=== PATIENT | female | born 1980 | race Caucasian/White ===

== ENCOUNTER 2021-07-06 09:52 | Emergency (ER) | payer OTHER ==
[2021-07-06 10:05] VITALS: BP 131/86; PULSE 68; TEMP 97.9; BMI 26.7
[2021-07-06 10:56] LABS: BASO % 0.7 % (0-2.0); HCG,QUALITATIVE URINE Positive; HEMATOCRIT 41.6 % (32.4-45.2); LYMPH % 12.8 % (8-40); MCH 30.4 pg (25.7-33.7); MCHC 33.5 g/dl (32.0-36.0); MEAN CELL VOLUME 90.6 fl (80-96); MONO % 5.6 % (3.8-10.2); NEUT % 78.9 % (42.8-82.8); PLATELET COUNT 251 10^3/uL (134-434); RBC 4.59 M/mm3 (3.60-5.2); WHITE BLOOD COUNT 9.4 K/mm3 (4.0-10.0)
[2021-07-06 11:00] LABS: EPI CELLS 30 /uL (0-25.1); HYALINE CASTS 8 /uL (0-3.1); PH,URINE 6.5 (5.0-8.0); URINE APPEARANCE CLOUDY; URINE BACTERIA 37 /uL (0-1359); URINE BILIRUBIN NEGATIVE (NEGATIVE); URINE COLOR RED; URINE GLUCOSE (UA) NEGATIVE (NEGATIVE); URINE KETONE NEGATIVE (NEGATIVE); URINE LEUK ESTERASE TRACE (NEGATIVE); URINE NITRITE NEGATIVE (NEGATIVE); URINE PROTEIN 2+ (NEGATIVE); URINE UROBILINOGEN 0.2 mg/dL (0.2-1.0); URINE WBC 21 /uL (0-25.8)
[2021-07-06 11:22] LABS: URINE RBC 9395.4 /uL (0-23.9)
[2021-07-06 11:23] LABS: YEAST NEGATIVE (NEGATIVE)
[2021-07-06 11:25] LABS: ALBUMIN 3.8 g/dl (3.4-5.0); BLOOD UREA NITROGEN 10.7 mg/dL (7-18); CALCIUM 8.6 mg/dL (8.5-10.1)
[2021-07-06 11:28] LABS: CREATININE 0.6 mg/dL (0.55-1.3)
[2021-07-06 11:30] LABS: BILIRUBIN,TOTAL 0.3 mg/dL (0.2-1)
== END 2021-07-06 12:49 | disposition home or self-care (01) ==
LOC: JERFT 09:52 → JER 09:52 → JERFT 12:49
DX: O20.9 Hemorrhage in early pregnancy, unspecified (principal); Z3A.01 Less than 8 weeks gestation of pregnancy
CPT/HCPCS: 36415; 76817-TC; 80053; 81003; 84702; 84703; 85025; 86850; 86900; 86901; 87086; 99284-25

== ENCOUNTER 2021-07-08 12:37 | Emergency (ER) | payer OTHER ==
[2021-07-08 12:49] VITALS: BP 108/70; PULSE 58; TEMP 98.6; BMI 24.3
== END 2021-07-08 14:45 | disposition home or self-care (01) ==
LOC: JERFT 12:37
DX: O03.9 Complete or unspecified spontaneous abortion without complication (principal); Z3A.00 Weeks of gestation of pregnancy not specified
CPT/HCPCS: 36415; 84702; 99283-25

== ENCOUNTER 2021-12-03 10:37 | Emergency (ER) | payer OTHER ==
[2021-12-03 11:13] VITALS: BP 103/61; PULSE 69; RESP 18; TEMP 9.3; BMI 26.1
[2021-12-03 13:02] LABS: BASO % 0.9 % (0-2.0); EOS % 2.5 % (0-4.5); HEMATOCRIT 38.8 % (32.4-45.2); HEMOGLOBIN 13.3 GM/dL (10.7-15.3); LYMPH % 26.4 % (8-40); MCH 30.8 pg (25.7-33.7); MCHC 34.4 g/dl (32.0-36.0); MEAN CELL VOLUME 89.5 fl (80-96); MEAN PLT VOLUME 8.6 fl (7.5-11.1); MONO % 7.4 % (3.8-10.2); NEUT % 62.8 % (42.8-82.8); PLATELET COUNT 241 10^3/uL (134-434); RBC 4.34 M/mm3 (3.60-5.2); RDW 12.5 % (11.6-15.6); WHITE BLOOD COUNT 6.7 K/mm3 (4.0-10.0)
[2021-12-03 13:10] LABS: HCG,QUALITATIVE URINE Positive
[2021-12-03 13:14] LABS: EPI CELLS 31 /uL (0-25.1); HYALINE CASTS 0 /uL (0-3.1); PH,URINE 5.5 (5.0-8.0); URINE APPEARANCE CLEAR; URINE BACTERIA 2080 /uL (0-1359); URINE BILIRUBIN NEGATIVE (NEGATIVE); URINE COLOR YELLOW; URINE GLUCOSE (UA) NEGATIVE (NEGATIVE); URINE KETONE NEGATIVE (NEGATIVE); URINE LEUK ESTERASE 2+ (NEGATIVE); URINE NITRITE NEGATIVE (NEGATIVE); URINE PROTEIN NEGATIVE (NEGATIVE); URINE RBC 4 /uL (0-23.9); URINE UROBILINOGEN 0.2 mg/dL (0.2-1.0); URINE WBC 61 /uL (0-25.8)
[2021-12-03 13:23] LABS: ALBUMIN 3.6 g/dl (3.4-5.0); BLOOD UREA NITROGEN 15.1 mg/dL (7-18); CALCIUM 9.1 mg/dL (8.5-10.1)
[2021-12-03 13:27] LABS: CREATININE 0.5 mg/dL (0.55-1.3)
[2021-12-03 13:28] LABS: BILIRUBIN,TOTAL 0.3 mg/dL (0.2-1); TOT PROT 7.2 g/dl (6.4-8.2)
== END 2021-12-03 15:44 | disposition home or self-care (01) ==
LOC: JER 10:37 → JERFT 10:37
DX: O20.9 Hemorrhage in early pregnancy, unspecified (principal); Z3A.00 Weeks of gestation of pregnancy not specified
CPT/HCPCS: 36415; 76817-TC; 80053; 81003; 84702; 84703; 85025; 87086; 99284-25

== ENCOUNTER 2021-12-20 17:54 | Emergency (ER) | payer OTHER ==
[2021-12-20 18:12] VITALS: TEMP 97.8; BMI 26.3
[2021-12-20 19:22] LABS: EOS % 4.2 % (0-4.5); HEMATOCRIT 40.8 % (32.4-45.2); HEMOGLOBIN 13.3 GM/dL (10.7-15.3); LYMPH % 24.5 % (8-40); MCH 29.1 pg (25.7-33.7); MCHC 32.5 g/dl (32.0-36.0); MEAN CELL VOLUME 89.5 fl (80-96); MEAN PLT VOLUME 9.1 fl (7.5-11.1); MONO % 6.5 % (3.8-10.2); NEUT % 63.8 % (42.8-82.8); PLATELET COUNT 255 10^3/uL (134-434); RBC 4.56 M/mm3 (3.60-5.2); RDW 12.9 % (11.6-15.6); WHITE BLOOD COUNT 7.1 K/mm3 (4.0-10.0)
[2021-12-20 19:30] LABS: EPI CELLS >36 /uL (0-25.1); HYALINE CASTS 1 /uL (0-3.1); PH,URINE 6.5 (5.0-8.0); URINE APPEARANCE CLOUDY; URINE BACTERIA 2386 /uL (0-1359); URINE BILIRUBIN NEGATIVE (NEGATIVE); URINE COLOR YELLOW; URINE GLUCOSE (UA) NEGATIVE (NEGATIVE); URINE KETONE NEGATIVE (NEGATIVE); URINE LEUK ESTERASE 2+ (NEGATIVE); URINE NITRITE NEGATIVE (NEGATIVE); URINE PROTEIN NEGATIVE (NEGATIVE); URINE RBC 7 /uL (0-23.9); URINE UROBILINOGEN 0.2 mg/dL (0.2-1.0); URINE WBC 144 /uL (0-25.8)
[2021-12-20 20:31] LABS: BLOOD UREA NITROGEN 10.5 mg/dL (7-18); CALCIUM 8.7 mg/dL (8.5-10.1)
[2021-12-20 20:35] LABS: CREATININE 0.7 mg/dL (0.55-1.3)
[2021-12-21 01:11] VITALS: BP 119/77; PULSE 67; RESP 20
== END 2021-12-21 01:11 | disposition home or self-care (01) ==
LOC: JER 17:54
DX: O02.1 Missed abortion (principal)
CPT/HCPCS: 36415; 76817-TC; 80048; 81003; 84702; 85025; 86850; 86900; 86901; 87077; 87086; 99284-25

== ENCOUNTER 2022-11-26 09:43 | Emergency (ER) | payer BC, OTHER ==
[2022-11-26 09:48] VITALS: BP 110/73; PULSE 68; RESP 18; TEMP 98.7; BMI 26.7
[2022-11-26] MEDS ORDERED: IBUPROFEN 600 MG TABLET (FP) PO ONE ×2 (11:09→11:11)
[2022-11-26 12:24] LABS: THROAT:GRP A STREP NOT DETECTED (NOTDETECTED)
== END 2022-11-26 12:59 | disposition home or self-care (01) ==
LOC: JERFT 09:43
DX: J02.9 Acute pharyngitis, unspecified (principal); R09.81 Nasal congestion; R50.9 Fever, unspecified; R51.9 Headache, unspecified; R05.9 Cough, unspecified; J06.9 Acute upper respiratory infection, unspecified; J31.0 Chronic rhinitis; Z20.822 Contact with and (suspected) exposure to COVID-19
CPT/HCPCS: 0241U-QW; 87651; 99283-25

== ENCOUNTER 2023-01-01 21:40 | Emergency (ER) | payer BC, OTHER ==
[2023-01-01 21:54] VITALS: RESP 18; BMI 24.9
[2023-01-01 22:52] LABS: HCG,QUALITATIVE URINE Positive
[2023-01-01 22:55] LABS: EPI CELLS >36 /uL (0-25.1); HYALINE CASTS 0 /uL (0-3.1); URINE APPEARANCE CLEAR; URINE BACTERIA 1545 /uL (0-1359); URINE BILIRUBIN NEGATIVE (NEGATIVE); URINE COLOR YELLOW; URINE GLUCOSE (UA) NEGATIVE (NEGATIVE); URINE KETONE TRACE (NEGATIVE); URINE LEUK ESTERASE TRACE (NEGATIVE); URINE NITRITE NEGATIVE (NEGATIVE); URINE PROTEIN NEGATIVE (NEGATIVE); URINE RBC 8 /uL (0-23.9); URINE WBC 14 /uL (0-25.8)
[2023-01-02 00:22] LABS: BASO % 0.9 % (0-2.0); EOS % 3.3 % (0-4.5); HEMATOCRIT 39.5 % (32.4-45.2); HEMOGLOBIN 13.6 GM/dL (10.7-15.3); LYMPH % 26.2 % (8-40); MCHC 34.4 g/dl (32.0-36.0); MEAN CELL VOLUME 87.1 fl (80-96); MEAN PLT VOLUME 8.9 fl (7.5-11.1); NEUT % 62.6 % (42.8-82.8); PLATELET COUNT 230 10^3/uL (134-434); RBC 4.54 M/mm3 (3.60-5.2); RDW 13.3 % (11.6-15.6); WHITE BLOOD COUNT 7.4 K/mm3 (4.0-10.0)
[2023-01-02 00:41] LABS: POTASSIUM 3.8 mmol/L (3.5-5.1)
[2023-01-02 00:43] LABS: ALBUMIN 3.6 g/dl (3.4-5.0); BLOOD UREA NITROGEN 17.5 mg/dL (7-18); CALCIUM 8.6 mg/dL (8.5-10.1)
[2023-01-02 00:46] LABS: CREATININE 0.7 mg/dL (0.55-1.3)
[2023-01-02 00:48] LABS: BILIRUBIN,TOTAL 0.3 mg/dL (0.2-1); TOT PROT 7.1 g/dl (6.4-8.2)
[2023-01-02 01:05] VITALS: TEMP 98.2
[2023-01-02 05:28] VITALS: BP 103/71; PULSE 75
== END 2023-01-02 05:29 | disposition home or self-care (01) ==
LOC: JER 21:40
DX: O26.891 Other specified pregnancy related conditions, first trimester (principal); R10.30 Lower abdominal pain, unspecified; M54.50 Low back pain, unspecified; O23.91 Unspecified genitourinary tract infection in pregnancy, first trimester; R82.71 Bacteriuria; Z3A.01 Less than 8 weeks gestation of pregnancy
CPT/HCPCS: 36415; 76817-TC; 80053; 81003; 83690; 84484; 84702; 84703; 85025; 87081; 87086; 87491; 87591; 87661; 99284-25

== ENCOUNTER 2023-01-03 19:04 | Emergency (ER) | payer BC, OTHER ==
[2023-01-03 19:21] VITALS: BP 101/63; PULSE 61; RESP 18; TEMP 98.9; BMI 29.2
== END 2023-01-03 22:56 | disposition home or self-care (01) ==
LOC: JERFT 19:04
DX: O02.81 Inappropriate change in quantitative human chorionic gonadotropin (hCG) in early pregnancy (principal); Z3A.01 Less than 8 weeks gestation of pregnancy
CPT/HCPCS: 36415; 84702; 99283-25

== ENCOUNTER 2023-01-26 15:26 | Emergency (ER) | payer BC, OTHER ==
[2023-01-26 15:43] VITALS: BP 97/59; PULSE 74; RESP 20; TEMP 98; BMI 28.6
[2023-01-26 17:58] LABS: HCG,QUALITATIVE URINE Positive
[2023-01-26 18:02] LABS: EPI CELLS >36 /uL (0-25.1); HYALINE CASTS 0 /uL (0-3.1); URINE APPEARANCE CLEAR; URINE BACTERIA 2207 /uL (0-1359); URINE BILIRUBIN NEGATIVE (NEGATIVE); URINE COLOR YELLOW; URINE GLUCOSE (UA) NEGATIVE (NEGATIVE); URINE KETONE NEGATIVE (NEGATIVE); URINE LEUK ESTERASE 1+ (NEGATIVE); URINE NITRITE NEGATIVE (NEGATIVE); URINE PROTEIN NEGATIVE (NEGATIVE); URINE RBC 5 /uL (0-23.9); URINE WBC 42 /uL (0-25.8)
== END 2023-01-26 20:07 | disposition home or self-care (01) ==
LOC: JERFT 15:26
DX: O20.0 Threatened abortion (principal); O26.891 Other specified pregnancy related conditions, first trimester; R10.30 Lower abdominal pain, unspecified; Z3A.01 Less than 8 weeks gestation of pregnancy
CPT/HCPCS: 36415; 76801-TC; 81003; 84702; 84703; 87086; 99284-25

== ENCOUNTER 2023-01-29 19:22 | Emergency (ER) | payer BC, OTHER ==
[2023-01-29 19:27] VITALS: BP 129/78; PULSE 85; RESP 16; TEMP 98.1; BMI 28.8
== END 2023-01-30 01:30 | disposition home or self-care (01) ==
LOC: JERFT 19:22 → JER 19:22
DX: O20.0 Threatened abortion (principal); R10.9 Unspecified abdominal pain
CPT/HCPCS: 36415; 76801-TC; 84702; 99284-25

== ENCOUNTER 2024-03-13 13:26 | Inpatient (IN) | payer BC ==
[2024-03-13] MEDS: ELECTROLYTE-148 SOLN 1,000 ML IV SCH (15:00)
[2024-03-13 15:03] VITALS: BMI 30.7
[2024-03-13 15:13] LABS: BASO % 0.6 % (0-2.0); EOS % 2.2 % (0-4.5); HEMATOCRIT 36.5 % (32.4-45.2); HEMOGLOBIN 12.4 GM/dL (10.7-15.3); LYMPH % 15.1 % (8-40); MCH 29.8 pg (25.7-33.7); MCHC 33.8 g/dl (32.0-36.0); MEAN CELL VOLUME 88.1 fl (80-96); MEAN PLT VOLUME 8.5 fl (7.5-11.1); MONO % 6.6 % (3.8-10.2); NEUT % 75.5 % (42.8-82.8); PLATELET COUNT 212 10^3/uL (134-434); RBC 4.15 M/mm3 (3.60-5.2); RDW 13.9 % (11.6-15.6); WHITE BLOOD COUNT 6.3 K/mm3 (4.0-10.0)
[2024-03-13 15:19] LABS: INR 0.91 (0.83-1.09); PROTHROMBIN TIME (PATIENT) 10.5 SEC (9.7-13.0)
[2024-03-13 15:22] LABS: ACTIVATED PTT 29.4 SECONDS (25.2-36.5)
[2024-03-13 16:09] LABS: POTASSIUM 3.9 mmol/L (3.5-5.1)
[2024-03-13 16:11] LABS: BLOOD UREA NITROGEN 10.5 mg/dL (7-18); CALCIUM 8.7 mg/dL (8.5-10.1)
[2024-03-13 16:14] LABS: CREATININE 0.7 mg/dL (0.55-1.3)
[2024-03-13] MEDS: DINOPROSTONE 10 MG VAGINAL SUPPOSITORY VG ONE (18:48)
[2024-03-14] MEDS: OXYTOCIN 30 UNITS in 0.9% NS 30 UNIT/500 ML INFUS.BAG IVPB SCH (08:13)
[2024-03-14] MEDS ORDERED: FENTANYL/BUPIVACAINE/NS/PF - PCEA - 50 ML DISP.SYRIN EP ONE (12:07)
[2024-03-14] MEDS ORDERED: BUPIVACAINE HCL/PF 0.25% (2.5MG/ML) 10 ML VIAL ONE (12:08)
[2024-03-14] MEDS ORDERED: FENTANYL CITRATE/PF 50 MCG/ML VIAL ONE (12:08)
[2024-03-14] MEDS: FENTANYL/BUPIVACAINE/NS/PF - PCEA - 50 ML DISP.SYRIN EP SCH (12:30)
[2024-03-14] MEDS ORDERED: NALOXONE HCL 0.4 MG/ML VIAL IVPUSH PRN (12:53)
[2024-03-14] MEDS ORDERED: OXYTOCIN 20 UNITS in 0.9% NS 20 UNIT/1,000 ML INFUS.BAG IV ONE (17:03)
[2024-03-14] MEDS ORDERED: BENZOCAINE 20% 57 GM BOTTLE TP PRN (17:18)
[2024-03-14] MEDS ORDERED: METHYLERGONOVINE MALEATE 0.2 MG/1 ML AMP IM PRN (17:18)
[2024-03-14] MEDS ORDERED: BISACODYL 10 MG SUPP.RECT RC PRN (17:18)
[2024-03-14] MEDS ORDERED: WITCH HAZEL 50% (TUCKS) 40 PAD/JAR PAD TP PRN (17:18)
[2024-03-14] MEDS ORDERED: oxyCODONE HCL 5 MG TABLET PO PRN (17:18)
[2024-03-14] MEDS ORDERED: BENZOCAINE 28 GM HEMORRHOIDAL OINTMENT TP PRN (17:18)
[2024-03-14] MEDS ORDERED: OXYTOCIN 20 UNITS in 0.9% NS 20 UNIT/1,000 ML INFUS.BAG IV SCH (17:30)
[2024-03-14 18:01] LABS: CORD BASE EXCESS -2.7 mmol/L (0-2); CORD HCO3 22.5 mmHg (20-29); CORD PCO2 40.6 mmHg (30-78); CORD pH 7.361 (7.14-7.44)
[2024-03-14 21:44] VITALS: RESP 18
[2024-03-14] MEDS: FERROUS SO4 325 MG TABLET (FP) PO SCH (22:19)
[2024-03-15] MEDS: IBUPROFEN 600 MG TABLET (FP) PO PRN (05:22)
[2024-03-15 08:18] LABS: BASO % 0.3 % (0-2.0); EOS % 1.7 % (0-4.5); HEMATOCRIT 33.7 % (32.4-45.2); HEMOGLOBIN 10.9 GM/dL (10.7-15.3); LYMPH % 11.4 % (8-40); MCH 29.3 pg (25.7-33.7); MCHC 32.5 g/dl (32.0-36.0); MEAN CELL VOLUME 90.2 fl (80-96); MONO % 4.7 % (3.8-10.2); NEUT % 81.9 % (42.8-82.8); PLATELET COUNT 185 10^3/uL (134-434); RBC 3.74 M/mm3 (3.60-5.2); RDW 13.9 % (11.6-15.6); WHITE BLOOD COUNT 12.2 K/mm3 (4.0-10.0)
[2024-03-15] MEDS: ACETAMINOPHEN 325 MG TABLET (FP) PO PRN (08:43)
[2024-03-15] MEDS: PRENATAL VITAMINS W/ FOLIC ACID TABLET (FP) PO SCH (10:01)
[2024-03-15] MEDS ORDERED: SENNOSIDES/DOCUSATE COMBO (SENNA PLUS) TABLET (UD) PO PRN (22:00)
[2024-03-16 08:32] VITALS: BP 110/55; PULSE 68; TEMP 98
== END 2024-03-16 17:40 | disposition home or self-care (01) | DRG 807 ==
LOC: JLDR 13:26 → J3W 03-14 21:15
PROVIDERS: ADMIT Obstetrics & Gynecology; ATTEND Obstetrics & Gynecology
PROC: 3E0P7VZ Introduction of Hormone into Female Reproductive, Via Natural or Artificial Opening (ICD-10-PCS; 2024-03-13)
PROC: 10E0XZZ Delivery of Products of Conception, External Approach (ICD-10-PCS; principal; 2024-03-14)
DX: O41.03X0 Oligohydramnios, third trimester, not applicable or unspecified (principal); Z3A.38 38 weeks gestation of pregnancy; Z37.0 Single live birth
CPT/HCPCS: 36415; 36600; 59409; 80048; 82803; 85025; 85610; 85730; 86780; 86850; 86900; 86901